=== PATIENT | male | born 1995 | race Caucasian/White ===

== ENCOUNTER 2024-03-16 16:57 | Emergency (ER) | payer OTHER ==
[~2024-03-16] VITALS: Ht 188 cm; Wt 68.0 kg
[2024-03-16 17:24] VITALS: BP 121/83; TEMP 98.2; O2SAT 97
== END 2024-03-16 20:06 | disposition home or self-care (01) ==
LOC: ER 16:59
DX: H61.23 Impacted cerumen, bilateral (principal); R42 Dizziness and giddiness; R51.9 Headache, unspecified